=== PATIENT | female | born 1940 | race Caucasian/White ===

== ENCOUNTER 2017-10-21 09:48 | Emergency (ER) | payer MEDICARE, OTHER ==
[~2017-10-21] VITALS: Ht 162.6 cm; Wt 57.1 kg
[~2017-10-21 09:48] MED LIST: ACET325 PO; ALPR.25 PO; AMIO200 PO; ASPI81CH PO; Adult Low Dose81 MG PO; BUME1 PO; CALCA500CH PO; CEFD300 PO; CEPH500 PO; COUGHTAB200 MG PO; DOCU100 PO; FURO20 PO; Garlic1000 MG PO; Hydrocodone-Ap1 EA23 PO; LEVSOD100 PO; LEVSOD125 PO; LEVSOD75 PO; LISI5 PO; Lisinopril2.5 MG; METO25 PO; METO25ER PO; METO50 PO; Micro-K10 MEQ PO; POTCHL10ER PO; ROSU5 PO; SENN187 PO; SIMV10 PO; Spironolactone25 MG PO; VICODIN 5-3001 EACH PO; Zofran4 MG PO
[2017-10-21] MEDS ORDERED: Triamcinolone A15 GM TOP (11:08)
== END 2017-10-21 11:12 | disposition home or self-care (01) ==
LOC: ER 09:48
DX: R21 Rash and other nonspecific skin eruption (principal); I50.9 Heart failure, unspecified; E03.9 Hypothyroidism, unspecified; J44.9 Chronic obstructive pulmonary disease, unspecified; Z79.899 Other long term (current) drug therapy; Z79.82 Long term (current) use of aspirin; Z87.891 Personal history of nicotine dependence
CPT/HCPCS: 99282

== ENCOUNTER 2018-10-18 12:43 | Emergency (ER) | payer MEDICARE, OTHER ==
[~2018-10-18] VITALS: Ht 165.1 cm; Wt 58.1 kg
[~2018-10-18 12:43] MED LIST changes: +Bumetanide1 MG PO; +EUTHYROX88 MCG PO; +Triamcinolone A15 GM TOP
== END 2018-10-18 13:38 | disposition home or self-care (01) ==
LOC: ER 12:43
DX: S60.222A Contusion of left hand, initial encounter (principal); J44.9 Chronic obstructive pulmonary disease, unspecified; I48.91 Unspecified atrial fibrillation; D64.9 Anemia, unspecified; I25.5 Ischemic cardiomyopathy; Z79.82 Long term (current) use of aspirin; Z79.899 Other long term (current) drug therapy; Z87.891 Personal history of nicotine dependence; W22.8XXA Striking against or struck by other objects, initial encounter
CPT/HCPCS: 99283

== ENCOUNTER 2018-11-19 10:26 | Inpatient (IN) | payer MEDICARE, OTHER ==
[~2018-11-19] VITALS: Ht 162.6 cm; Wt 59.8 kg
[2018-11-19 11:26] LABS: BASOPHILS ABSOLUTE AUTO 0.02 K/mm3 (0.00-0.23); BASOPHILS PERCENT AUTO 0 % (0-2); EOSINOPHILS PERCENT AUTO 0 % (0-6); Hematocrit 39.2 % (33.0-51.0); Hemoglobin 12.5 g/dL (11.5-16.0); IMMATURE GRAN ABSOLUTE AUTO 0.06 K/mm3 (0.00-0.10); IMMATURE GRAN PERCENT AUTO 0 % (0-1); LYMPHOCYTES ABSOLUTE AUTO 0.61 K/mm3 (0.84-5.20); LYMPHOCYTES PERCENT AUTO 5 % (21-46); MONOCYTES ABSOLUTE AUTO 0.85 K/mm3 (0.16-1.47); MONOCYTES PERCENT AUTO 6 % (4-13); Mean Corpuscular HGB 32.5 pg (26.0-34.0); Mean Corpuscular HGB Conc 31.9 g/dL (31.5-36.5); Mean Corpuscular Volume 102 fL (80-100); NEUTROPHILS ABSOLUTE AUTO 12.02 K/mm3 (1.96-9.15); NEUTROPHILS PERCENT AUTO 89 % (41-73); Platelet Count 148 K/mm3 (150-400); RDW Coefficient Variation 13.1 % (11.7-14.2); RDW Standard Deviation 48.8 fL (35.1-46.3); Red Blood Cell Count 3.85 M/mm3 (3.80-5.20); White Blood Cell Count 13.56 K/mm3 (4.00-11.30)
[2018-11-19 11:40] LABS: Albumin, Blood 3.9 g/dL (3.4-5.0); Albumin/Globulin Ratio 1.2 (0.8-1.8); Bilirubin, Total 1.8 mg/dL (0.1-1.0); Bun/Creatinine Ratio 32.7 (12.0-20.0); Calcium, Blood 8.8 mg/dL (8.5-10.1); Creatinine, Blood 1.53 mg/dL (0.40-1.00); Globulin, Blood 3.3 g/dL (2.2-4.0); Potassium, Blood 4.3 mmol/L (3.5-5.5); Total Protein, Blood 7.2 g/dL (6.4-8.2); Troponin I 0.115 ng/mL (0.000-0.040)
--- NOTE | 2018-11-19 15:25 | NUR ---
Initial Visit: Pt is very agitated, trying to pull off bipap. Pt's son and are at bedside. Family is holding pt's hands down so that she will keep the mask on. She appears very uncomfortable at the moment. Reviewed heart condition. Nicholas reports that the pt would not likely want intubation. He says, "what are we dealing with?" Reported to him that she is very sick, may not be a good outcome for her. Nurse is at bedside and gives them additional information about likely having other organs effected by the fluid around her heart. Discussed that further decisions will need to be made for the pt's plan and goals. Reviewed with Dr. Randle. Palliative care to remain available if needed for this pt and the family.
[2018-11-19 16:05] LABS: Source, Urine Clean Catch
[2018-11-19 16:15] LABS: Blood, Urine 1+ (Neg); Glucose Qualitative, Urine Neg (Neg); Ketones, Urine 1+ (Neg); Leukocyte Esterase, Urine 1+ (Neg); Nitrite, Urine Neg (Neg); Protein, Urine 3+ (Neg); Specific Gravity, Urine 1.025 (1.003-1.022); Urobilinogen, Urine 2+ (Normal)
[2018-11-19 16:25] LABS: Bilirubin, Urine 1+ (Neg)
[2018-11-19 16:26] LABS: Appearance, Urine Cloudy (Clear); Color, Urine Amber (P-Yellow)
[2018-11-19 16:28] LABS: Squamous Epithelial Cells Mod /hpf (Few)
[2018-11-19 16:29] LABS: Amorphous Heavy (0-Heavy); Bacteria Mod /hpf; Red Blood Cells, Urine 0-2 /hpf (0-2); White Blood Cells, Urine 0-2 /hpf (0-5)
--- NOTE | 2018-11-19 16:45 | NUR ---
PATIENT ARRIVED TO ICU 13 VIA STRETCHER FROM ED AFTER REPORT WAS CALLED TO THIS RN BY KALLI RN, ED, MOVED TO ICU BED VIA SLIDER, PLACED ON PL[employer] SCIENCES PROFESSOR, HR SINUS TACHY IN LOW 100'S, BLOOD PRESSURES VARY FROM LOW 100'S TO 130'S, LUNG SOUNDS ARE DIMINISHED WITH CRACKLES AND SOUND VERY TIGHT, BOWEL TONES ARE VERY HYPOACTIVE, MONROE CATHETER IN PLACE DRAINING MINIMAL AMOUNT OF FLUIDS, SCD'S IN PLACE, LOVENOX GIVEN ORDERED, FAMILY AT BEDSIDE, DR. LUI IN TO SEE PATIENT AND SPOKE WITH FAMILY, ALSO CONSULT FOR CARDIOLOGY WAS CALLED, PATIENT IS A FULL CODE AT THIS TIME, CALL LIGHT IN REACH, WILL CONTINUE TO MONITOR.
--- NOTE | 2018-11-19 17:45 | NUR ---
DR. REEVES IN TO SEE PATIENT, WILL WRITE NEW ORDERS, ALSO LAB IN TO DRAW ORDERED BLOOD CULTURES, CALL LIGHT IN REACH, WILL CONTINUE TO MONITOR.
--- NOTE | 2018-11-19 17:55 | NUR ---
SHIFT SUMMARY NOTE: PATIENT RESTING COMFORTABLY AT THIS TIME ON 3L NC, SATING IN MID 90'S, BLOOD PRESSURES IN LOW 100'S, TO BE STARTED ON HEPARIN DRIP, AWAITING APTT RESULTS, FAMILY AT BEDSIDE, SEE ADMISSION ASSESSMENT FOR DETAILS AND NURSES NOTES, CALL LIGHT IN REACH, WILL CONTINUE TO MONITOR, AND GIVE REPORT TO ONCOMING PHYSICAL EDUCATION DEPARTMENT CHAIR.
--- NOTE | 2018-11-19 18:52 | NUR ---
IMAGING AT BEDSIDE TO DO ORDERED VENOUS DOPPLER, ALSO LAB AT BEDSIDE, ATTEMPTING TO DRAW APTT.
--- NOTE | 2018-11-19 19:15 | NUR ---
[place] of Care: Patient sleeping, easily roused via verbal stimuli, oriented to self, place and family. Denies pain, discomfort, SOB, dyspnea, or SOB. O2-94-98% on 2-3L/NC. Systolic BP 90's-low 100's, MAP- 60's-70's and stable. Tyler cath patent and intact, draining small amount of dark yellow urine. Doppler study of BLE's completed shortly after shift change. Doppler results received were positive for DVT and SVT, both chronic and non-obstructive, Dr. Denny aware of results. Power-glide placed to REAGAN by this RN shortly after shift change. Heparin bolus and gtt started after PTT results received by pharmacist Jayde. Peripheral IV's x2 to rt arm patent and intact. Patient calm and cooperative with staff, appears to be comfortable. Will continue to monitor for pain, comfort, safety.
[2018-11-19 21:12] LABS: Free Thyroxine 0.87 ng/dL (0.70-1.60)
[2018-11-19 21:14] LABS: Thyroid Stimulating Hormone 37.3 uIU/mL (0.360-4.800)
[2018-11-19 21:20] LABS: D-Dimer, Quantitative 4.85 mg/L FEU (0.00-0.52); International Normalized Ratio 1.53; Prothrombin Time Results 15.6 Sec (9.7-11.5)
[2018-11-20 03:46] LABS: BASOPHILS ABSOLUTE AUTO 0.03 K/mm3 (0.00-0.23); BASOPHILS PERCENT AUTO 0 % (0-2); EOSINOPHILS PERCENT AUTO 0 % (0-6); Hematocrit 33.6 % (33.0-51.0); IMMATURE GRAN ABSOLUTE AUTO 0.11 K/mm3 (0.00-0.10); IMMATURE GRAN PERCENT AUTO 1 % (0-1); LYMPHOCYTES ABSOLUTE AUTO 0.56 K/mm3 (0.84-5.20); LYMPHOCYTES PERCENT AUTO 3 % (21-46); MONOCYTES ABSOLUTE AUTO 0.68 K/mm3 (0.16-1.47); MONOCYTES PERCENT AUTO 4 % (4-13); Mean Corpuscular HGB 32.4 pg (26.0-34.0); Mean Corpuscular HGB Conc 32.7 g/dL (31.5-36.5); Mean Platelet Volume 12.6 fL (9.1-12.4); NEUTROPHILS ABSOLUTE AUTO 17.92 K/mm3 (1.96-9.15); NEUTROPHILS PERCENT AUTO 93 % (41-73); Platelet Count 120 K/mm3 (150-400); RDW Coefficient Variation 12.7 % (11.7-14.2); RDW Standard Deviation 46.2 fL (35.1-46.3)
[2018-11-20 03:47] LABS: Mean Corpuscular Volume 99 fL (80-100)
[2018-11-20 04:06] LABS: Albumin, Blood 3.4 g/dL (3.4-5.0); Albumin/Globulin Ratio 1.3 (0.8-1.8); Bilirubin, Total 1.6 mg/dL (0.1-1.0); Bun/Creatinine Ratio 26.1 (12.0-20.0); Calcium, Blood 7.9 mg/dL (8.5-10.1); Creatinine, Blood 2.41 mg/dL (0.40-1.00); Globulin, Blood 2.6 g/dL (2.2-4.0); Magnesium, Blood 2.3 mg/dL (1.6-2.4); Phosphorus, Blood 5.6 mg/dL (2.5-4.9); Potassium, Blood 4.3 mmol/L (3.5-5.5)
[2018-11-20 06:53] LABS: Base Excess Venous -11.4 mmol/L; PCO2 Venous 35.2 mmHg (38-42); PO2 Venous 22 mmHg (38-42); pH Blood Venous 7.26 (7.34-7.37)
--- NOTE | 2018-11-20 08:01 | NUR ---
Shift Summary/ Acute Decline: Patient slept well throughout majority of shift. Continued to deny pain, discomfort, SOB, or dyspnea. VS remained stable with HR low 100's, BP stable with systolic BP 90's-low 100's. Tyler cath remained patent and intact with approx 250ml output. At approx 0600hr, patients HR increased to 160's, appeared to be SVT. At this time, patient asymptomatic, denying pain, discomfort, or dyspnea. O2-94-96%, BP stable. Vagal maneuver's non-effective. 12-lead EKG obtained. Call placed to Dr. Sanchez, received order for IV Lopressor 5mg, x1. Approx 4-5min after Lopressor administered, Patient's HR suddenly decreased to 40's, then slowly back up to 60's and maintained at this rate. Patient also became symptomatic at this time, c/o difficulty breathing and becoming restless. BP decreased to systolic 60's, O2% reading difficult to assess but readings in 70's-80's. 250ml fluid bolus started, non-rebreather mask applied, pacer pads applied, crash cart to room. Dr. Sanchez called to room. BP improved following 250ml fluid bolus, systolic back to 90's-low 100's. Received orders per Dr. Sanchez for STAT troponin, Lactic, chest x-ray, and ABG. Call then placed to Dr. Juarez and Rafael Mendoza, as patient continued to have dyspnea, and began complaining of anterior chest pain, lab results also reported to both physician. Dr. Juarez instructed that he would be in to see patient. Dr. Denny instructed that patient's condition is not likely coronary and more likely r/t PE. Received orders per Dr. Denny to consult Dr. Noriega. Call placed to Dr. Noriega. Informed Dr. Noriega of patient's condition, lab results (including critical labs of Ph-7.26, PO2-22), possible need for intubation, and instructions/information received from Dr. Denny. Patient continued to have dyspnea, with difficult to obtain O2 readings (70's-90's, depending on accuracy of reading) while calls placed to Dr. Denny and Dr. Noriega. Received orders to continue to maintian O2% and start Levophed gtt if BP decreases, per Dr. Noriega. Dr. Dr. Juarez to patient's room while call placed to Dr. Noriega. Patient's BP declined and became unobtainable per automatic cuff while Dr. Juarez in room. Dr. Juarez instructed to start fluid bolus, start Levophed gtt throughout peripheral IV, and obtain central line. Courtney RN then placed call to Dr. Noriega, informed him of need for central line, and change/decline in patient's BP. Courtney ALONSO also placed call to ER, but ER physician unable to come to unit to place central line. Levophed gtt infusing at 20mcg/min, and NS fluid bolus infusing at this time, approx 0730hr. Dr. Noriega to room approx 0745hr. Day shift RN's and Dr. Noriega then began set-up for intubation and central line placement.
[2018-11-20 08:47] LABS: PCO2 Arterial 20.6 mmHg (35-45); PO2 Arterial 484 mmHg (80-100)
[2018-11-20 08:48] LABS: pH Blood Arterial 7.18 (7.35-7.45)
--- NOTE | 2018-11-20 09:04 | NUR ---
GENERAL ICU NOTE FOR CRITICAL PT... AT APPROX 0700 INTERED THE ROOM AND PT WAS CALLING OUT FOR PAIN IN HER BACK AND THAT SHE COULD NOT BREATH. ATTEMPTS WERE MADE TO OBTAIN BP NIPB, MANUAL AND DOPPLER UNSUCCESFULLLY. DR CHASE WAS IN ROOM AND LEVOPHED GTT WAS ORDERED AND STARTED PERIPHERALLY WITH SITE CHECKED. PT LUNGS ARE DIMINISCHED IN L BASE BUT MOVING AIR IN ALL OTHER SALGADO. PT HAS GENERAL BODY CYANOSIS, COOL AND CLAMY. PT PIV'S ARE ALL IN R ARM AND STABLE. DR ZAVALA ARRIVED AND L SUBCLAV. LINE PLACED FOLLOWED BY L FEMERAL A-LINE WITH NOTED PRESSURES. CVP REPORTED AT 22-[address] ZAVALA. ABG'S OBTAINEDA AND REPORTED. SPB NOTED AT 100+ PER VAHID AND REPORTED. CXR TO FOLLOW. ECHOCARD. AND ABD ULTRASOUND ORDERED AND BOTH BEING COMPLETED AT THIS TIME. PT IS SINUS BRANDY AND POOR PERFUSION SATS REMAIN LOW NOTED. IV GTTS NOTED.
--- NOTE | 2018-11-20 09:41 | NUR ---
ECHOCARDIOGRAM COMPLETED
--- NOTE | 2018-11-20 11:57 | NUR ---
VS HAVE IMPROVED NOTED AND LEVOPHED GTT DOWN TO 16MCG. IVF NOTED. NO U.O. DISTAL EXT REMAIN COLD AND CYANOTIC. FENTANYL IVP GIVEN NOTED AND PT IS CALM. L SUBCLAV CENTERAL SITE D/C AND DSGED WITH MINOR PRESSURE HELD TO STOP BLEEDING. NEW L GROIN QUAD CENTRAL LINE PLACE PER DR ZAVALA WITH DSG COVERING A-LINE AND CENTRAL LINE AND MARKED. PT IS LIGHTLY RESTRAINED AND ORDER PLACED. SR 60-64 RANGE. NO ET SECREATIONS AT THIS TIME.
--- NOTE | 2018-11-20 15:15 | NUR ---
Met with Alessandro at Shereen's bedside. She is currently on a ventilator with pressor support. Her EF is very low and kidney function is poor. Talked with family about her condition. They agreed to DNR status yesterday and they continue to support this today. Plan per and son at this time is to "wait and see." They are aware that she is not doing well at this time. Emotional support given. Nicholas brought Shereen's rosary and placed it in her hand. They spoke with Table Makerjazmine Chery earlier and would like Father Zaire to visit when he is able. PC will continue to follow. If her condition continues to decline will have conversations with family members re: transitioning to comfort care.
--- NOTE | 2018-11-20 15:44 | NUR ---
[facility]ual [facility] intial visit: I met with Mrs. Mccarthy family in ICU waiting area. they appear to understand her poor prognosis. They tell me she is a life-long Quaker and they would like "last rites before she dies." Advised that Father Zaire has the day off and offered to call him in if they so desired. More family is arriving by tomorrow, and they would like to wait until "everyone is here." Advised I would remain available.
--- NOTE | 2018-11-20 16:35 | NUR ---
HEPARIN GTT WAS TURNED OFF EARLIER AND PT HR AND VS NOTED. PT IS NOTED TO HAVE SOME SLOW VT AND DR ZAVALA VIEWED THE RYTHUM STRIP. PT HR SPONTANIOUS RETURN TO 55-65 RANGE W/O INTERVENTION. FAMILY HAS BEEN IN AND OUT OF ROOM AND MADE AWARE OF PT STATUS.
--- NOTE | 2018-11-20 18:40 | NUR ---
HEP GTT RESTARTED AT 12UNITS/ 14.2 ML. IVF NOTED. I/O NOTED. VSS ON CURRENT PRESSOR SETTINGS SEE FLOWSHEET. PT HAS BEEN MANNAGED ON VERSED AND FENTANYL IVP'S. UO REPORTED TO DR ZAVALA. VENT SETTINGS NOTED.
--- NOTE | 2018-11-20 21:32 | NUR ---
ASSUMED PT CARE AT 191 PT INTUBATED WITH VENT SETTINGS: AC 16, TV 350, PEEP 5, FIO2 50%; RR 22, OXYGEN SATURATIONS 95%. PT BEING MEDICATED WITH FENTANYL AND VERSED PUSHES NEEDED PER ORDERS; VERBAL ORDERS FROM DR. ZAVALA TO START VERSED GTT AND TITRATE TO EFFECT PT RESPONDS TO NOXIOUS STIMULI AND BECOMES VERY ANXIOUS/AGITATED VERY QUICKLY. LUNG SOUNDS ARE CLEAR TO BILATERAL UPPER LOBES AND DIMINISHED TO BILATERAL LOWER LOBES. PT NOTED TO BE HAVING FREQUENT BIGEMINY PVC'S WITH A HR 87. LEVOPHED GTT TITRATED DOWN TO 8MCG/MIN AT CHANGE OF SHIFT, VASOPRESSIN CONTINUES AT 0.04UNITS/MIN, AND DOBUTAMINE AT 5MCG/KG/MIN. ARTERIAL LINE TO LEFT GROIN WITH SBP'S 110-130'S. CENTRAL LINE ALSO TO LEFT GROIN WITH SODIUM BICARB INFUSING AT 75MLS/HR, HEPARIN AT 12 UNITS/KG/HR PER PHARMACY CONSULT. CVP PRESSURE OF 20 WITH MINIMAL URINE OUTPUT NOTED; DR. ZAVALA AWARE. POWERGLIDE REMAINS TO RIGHT UPPER EXTREMITY; PATENT AND FLUSHED. SON AT BEDSIDE AT THIS TIME. WILL CONTINUE TO MONITOR FOR ANY SIGNIFICANT CHANGES AND REPORT TO PHYSICIAN INDICATED.
[2018-11-21 04:33] LABS: Albumin, Blood 2.7 g/dL (3.4-5.0); Albumin/Globulin Ratio 1.2 (0.8-1.8); Bilirubin, Total 1.2 mg/dL (0.1-1.0); Bun/Creatinine Ratio 28.5 (12.0-20.0); Calcium, Blood 6.6 mg/dL (8.5-10.1); Creatinine, Blood 2.7 mg/dL (0.40-1.00); Globulin, Blood 2.2 g/dL (2.2-4.0); Magnesium, Blood 1.8 mg/dL (1.6-2.4); Phosphorus, Blood 4.9 mg/dL (2.5-4.9); Potassium, Blood 3.5 mmol/L (3.5-5.5); Total Protein, Blood 4.9 g/dL (6.4-8.2)
[2018-11-21 05:33] LABS: BASOPHILS ABSOLUTE AUTO 0.01 K/mm3 (0.00-0.23); BASOPHILS PERCENT AUTO 0 % (0-2); EOSINOPHILS PERCENT AUTO 0 % (0-6); Hematocrit 28.9 % (33.0-51.0); IMMATURE GRAN PERCENT AUTO 1 % (0-1); LYMPHOCYTES ABSOLUTE AUTO 0.39 K/mm3 (0.84-5.20); LYMPHOCYTES PERCENT AUTO 3 % (21-46); MONOCYTES ABSOLUTE AUTO 0.52 K/mm3 (0.16-1.47); MONOCYTES PERCENT AUTO 4 % (4-13); Mean Corpuscular HGB 32.4 pg (26.0-34.0); Mean Corpuscular HGB Conc 34.6 g/dL (31.5-36.5); NEUTROPHILS ABSOLUTE AUTO 12.15 K/mm3 (1.96-9.15); NEUTROPHILS PERCENT AUTO 92 % (41-73); NRBC ABSOLUTE 0.04 K/mm3 (0.00-0.02); NRBC Auto 0.3 /100 WBC (0.0-0.2); Platelet Count 98 K/mm3 (150-400); RDW Coefficient Variation 12.5 % (11.7-14.2); RDW Standard Deviation 42.3 fL (35.1-46.3); Red Blood Cell Count 3.09 M/mm3 (3.80-5.20); White Blood Cell Count 13.17 K/mm3 (4.00-11.30)
--- NOTE | 2018-11-21 05:33 | NUR ---
END OF SHIFT SUMMARY PT REMAINS INTUBATED. VENT SETTINGS AC 16, TV 350, PEEP 5, FIO2 30%. VERSED GTT AT 4MG/HR; PT APPEARS COMFORTABLE AT THIS DOSE. VERY AGITATED TO NOXIOUS STIMULI WITH VERSED GTT AT 2MG/HR. LUNG SOUNDS REMAIN CLEAR TO BILATERAL UPPER LOBES AND DIMINISHED TO BILATERAL LOWER LOBES. SCANT AMOUNT OF SPUTUM, THICK AND ESCALANTE IN COLOR. PT HAS BEEN IN NSR WITH FREQUENT BIGEMINY PVC'S; HR 80'S. ABLE TO TITRATE LEVOPHED GTT OFF; VASOPRESSIN AND DOPUTAMINE REMAIN ON. CENTRAL LINE AND ARTERIAL LINE REMAIN TO LEFT FEMORAL SITE WITH DRESSING CDI. CVP MEASUREMENT OF 20 AT BEGINNING OF SHIFT AND 15 AT THE END. SODIUM BICARD CONTINUES TO INFUSE AT 75MLS/HR, AND HEPARIN AT 12 UNITS/KG/HR. URINE OUTPUT ADEQUATE THIS SHIFT; ACCOUNTING FOR 900CC TOTAL. PT REMAINS COLD TO THE TOUCH WITH POOR CAPILLARY REFILL; PALE SKIN COLOR. REPOSITIONED FOR COMFORT. FAMILY AT BEDSIDE INTERMITTENTLY T/O THE NIGHT. WILL CONTINUE TO MONITOR UNTIL REPORT IS HANDED OFF TO ONCOMING RN.
[2018-11-21 05:36] LABS: Mean Corpuscular Volume 94 fL (80-100)
--- NOTE | 2018-11-21 06:43 | NUR ---
DR. REEVES AT BEDSIDE DISCUSSING WITH FAMILY PT'S POOR PROGNOSIS. FAMILY WANTS TO WAIT TO DISCUSS WITH OTHER FAMILY MEMBERS END OF LIFE CARES PRIOR TO MAKING ANY FINAL DECISIONS.
--- NOTE | 2018-11-21 09:48 | NUR ---
PT SATS HAVE IN JUST LAST FEW MINUTES BEGAN TO SAG AND FIO2 IS CURRENTLY UP TO 45% AND WILL FOLLOW. FAMILY IS IN AND WISHING TO TALK TO DR FONSECA RE PT STATUS. IV GTTS ARE UNCHANGED CURRENTLY FROM 0800.
--- NOTE | 2018-11-21 10:44 | NUR ---
FAMILY IN ROOM AND WISHING TO TALK WITH DR REGARDING PT CONDITION AND STATUS. SATS AND BP IS ADIQUATE AT THIS TIME.
--- NOTE | 2018-11-21 17:02 | NUR ---
1515 PT WAS CHANGED TO COMFORT CARE AND PREPARED FOR EXTUBATION. 1530 PT WAS EXTUBATED AND MS FOR AIR HUNGER WAS GIVEN. FAMILY WAS CALLED TO BEDSIDE. PT RR ARE EVEN AND VERY MOIST SOUNDING. THERE IS NO EVIDENCE OF AIR HUNGER OR STRUGGLING NOTED. 1630-KATY ALL FAMILY OUT OF ROOM FOR NOW AND WILL CALL AT T.O.D. RR 22-26 AND CONT MOIST SOUNDING AND PT REMAINS CALM W/O AGITATION OR DISTRESS.
--- NOTE | 2018-11-21 18:04 | NUR ---
[facility] Spiritual Care note: Mrs. Mccrathy appears comfortable and is non-responsive. Family is deeply appreciative of spiritual support from Father Zaire. I answered family questions about next steps after . they have selected [facility] for arrangements. Family appears loving and devoted. No concerns presented. I will remain available.
--- NOTE | 2018-11-21 18:38 | NUR ---
PT RR ESSENTIALLY UNCHANGED, HR 105-110, VERSED GTT REMAINS AT 7MCG.
--- NOTE | 2018-11-21 19:31 | NUR ---
ASSUME CARE: REPORT RECIEVED FROM CAS OFF GOING RN. COMFORT CARE STATUS. LUNGS COARSE RHONCHI SX LG AMT THICK ESCALANTE SPUTUM ORALLY. REPOSITIONED TO L SIDE. MONROE PATENT DRAINING CLEAR FENG URINE. FAMILY IN FOR UPDATE. EMOTIONAL SUPPORT AND COMFORT OFFERED. PT REST QUIETLY . NO RESPONSE TO VERBAL OR TACTILE STIMULI. CONTINUE TO MONITOR AND REPORT CHANGE IN PATIENT CONDITIONN
--- NOTE | 2018-11-21 22:29 | NUR ---
REMOVED CENTRAL AND ART LINE PRESSURE HELD DRESSING PLACED DRY INTACT SX LG AMT ESCALANTE THICK SECREATIONS CONTINUE TO MONITOR AND REPORT CHANGE IN PATIENT CONDITION
--- NOTE | 2018-11-22 02:25 | NUR ---
TRANSFER SUMMARY: REPORT GIVEN SOPHIE ACCEPTING RN. REMAINS COMFORT CARE. UNRESPONSIVE TO VERBAL OR TACTILE STIMULI. SX LG AMT ESCALANTE CREMEY SECRETIONS ORALLY. NO GAG NOTED. MEDICATED WITH FENTANYL ONCE. TRANSFER TO ICU 3 . CONTINUE TO MONITOR AND REPORT CHANGE IN PATIENT CONDITION.
--- NOTE | 2018-11-22 06:30 | NUR ---
PT SON DIANE NOTIFIED THAT PT MOVED TO ICU-3. PT CONT UNRESPONSIVE. APPEARS PEACEFUL W SHALLOW RESPIRATIONS. CONT TO PROVIDE MEDS FOR COMFORT. REPORT TO KATELYN.
--- NOTE | 2018-11-22 07:30 | NUR ---
ASSUMED CARE OF PATIENT; SEE ASSESSMENT CHARTING FOR DETAILS. PATIENT REMAINS COMFORT CARE STATUS AND IS MEDICAL STATUS; NO ROOMS AVAILABLE AT THIS TIME. SLEEPING WITH EYES CLOSED; NO RESPONSE TO VERBAL OR TACTILE STIMULI. MONITOR WITH ST, RATE LOW 100'S. APPEARS COMFORTABLE AND RR RATE EVEN AND UNLABORED. LUNGS CLEAR BUT DIMINISHED T/O. MONROE CATH. TO GRAVITY DRAINAGE; MOD. AMOUNTS OF MED. YELLOW URINE. NPO STATUS D/T DECREASED LOC AND POTENTIAL FOR ASPIRATION. BROTHER ARRIVED; SUPPORTIVE OF PATIENT.
--- NOTE | 2018-11-22 10:00 | NUR ---
DR. FELICITAS PARR IN TO SEE PATIENT; SPOKE TO PATIENTS' BROTHER FOR AWHILE. NO NEW ORDERS; PATIENT REPOSITIONED AND APPEARS COMFORTABLE; CONT. WITHOUT SPONT. MOVEMENT/RESPONSE.
--- NOTE | 2018-11-22 12:00 | NUR ---
PATIENT'S HR ELEVATED TO 160'S; WILL GIVE ROXANOL SUBLINQUAL FOR COMFORT MANAGEMENT.
--- NOTE | 2018-11-22 15:11 | NUR ---
MORPHINE SULFATE 2MG IV FOR INCREASING HR (180'S) AND FURROWED BROW. TO TRANSFER TO [facility], ROOM 341; AWAITIG ROOM TO BE CLEANED.
--- NOTE | 2018-11-22 15:50 | NUR ---
REPORT TO FEDERICO HARRINGTON RN; SHE WILL TAKE OVER CARE OF PATIENT WHEN HE IS TRANSFERRED TO ROOM 341.
--- NOTE | 2018-11-22 15:51 | NUR ---
Pt visit this afternoon. Pt resting in bed with her eyes closed and is non responsive. Pt appears comfortable with no S/S of distress at this time. Spoke with bedside nurse and she reports no concerns at this time. Plan if for Pt transfer to medical floor. Palliative Care will remain available.
--- NOTE | 2018-11-22 16:40 | NUR ---
TRANSFERRED TO MEDICAL FLOOR, ROOM 341, VIA BED; BELONGINGS, CHART AND MEDS. WITH PATIENT; REMAINS COMFORT CARE STATUS.
--- NOTE | 2018-11-22 16:57 | NUR ---
RECEIVED TO ROOM 341 FROM ICU VIA BED. SHE DID NOT AROUSE WHEN WE TRANSFERRED HER TO THE NEW BED. SHE IS UNCONSCIOUS. RATTLING COUGH. RESPIRATIONS 32/MIN AND REGULAR. HEART RACING FELT WITH MY HAND ON HER CHEST. NO FAMILY PRESENT AT THIS TIME. MONROE BAG WITH SMALL AMT OF YELLOW URINE. PG DRESSING INTACT ON REAGAN. WILL MEDICATE.
--- NOTE | 2018-11-22 17:30 | NUR ---
Pal Spiritual Care note: Mrs. Mccarthy was alone in room at time of visit. HR high, respirations even but rattled. She is not responsive to voice or touch, and appears to be in no distress. Nursing doing a great job as Shereen appears well cared-for. Prayer provided at bedside. I will remain available.
--- NOTE | 2018-11-22 18:33 | NUR ---
HOB ELEVATED 40 DEGREES TO LESSEN THE UPPER AIRWAY RATTLE. OCCASIONAL WET SHALLOW COUGH. SINCE ARRIVAL TO RM 341, I HAVE GIVEN ROXANOL X1 AND ATIVAN 0.5 MG FOR THE TACHYPNEA. RESPIRATIONS ARE 28 TO 32 PER MINUTE. WILL CONTINUE TO TRY TO MAKE HER MORE COMFORTABLE. NO FAMILY PRESENT AT THIS TIME.
--- NOTE | 2018-11-22 20:49 | NUR ---
2029: PATIENT REMAINS TACHYPNEIC WITH COARSE RATTLE LUNG SOUNDS. GAVE 1MG IV ATIVAN AND ATROPINE DROPS PER EMAR.. TURNED PATIENT TO RIGHT AND HOB UP TO EASE BREATHING. PATIENT HAS DUSKY YELLOW PALLOR AND DISTANT GAZE. PATIENT HR SLOWED AND BREATHS SLOWED WELL. CALLED CHARGE TO ROOM. 2044: PATIENT TIME OF .
== END 2018-11-22 20:45 | DRG 208 ==
LOC: ER 10:26 → ICUW 15:42 → ICUE 11-22 03:36 → MEDS 11-22 16:40
PROVIDERS: Emergency Medicine; Internal Medicine Critical Care Medicine; ADMIT Internal Medicine Endocrinology, Diabetes & Metabolism
PROC: 5A1945Z Respiratory Ventilation, 24-96 Consecutive Hours (ICD-10-PCS; 2018-11-19)
PROC: 0BH17EZ Insertion of Endotracheal Airway into Trachea, Via Natural or Artificial Opening (ICD-10-PCS; principal; 2018-11-20)
PROC: 3E033XZ Introduction of Vasopressor into Peripheral Vein, Percutaneous Approach (ICD-10-PCS; 2018-11-20)
PROC: 02HV33Z Insertion of Infusion Device into Superior Vena Cava, Percutaneous Approach (ICD-10-PCS; 2018-11-20)
PROC: 04HL33Z Insertion of Infusion Device into Left Femoral Artery, Percutaneous Approach (ICD-10-PCS; 2018-11-20)
DX: J96.01 Acute respiratory failure with hypoxia (principal); I50.23 Acute on chronic systolic (congestive) heart failure; K72.00 Acute and subacute hepatic failure without coma; I13.0 Hypertensive heart and chronic kidney disease with heart failure and stage 1 through stage 4 chronic kidney disease, or unspecified chronic kidney disease; I47.1 Supraventricular tachycardia; N17.9 Acute kidney failure, unspecified; I25.5 Ischemic cardiomyopathy; Z51.5 Encounter for palliative care; N18.3 Chronic kidney disease, stage 3 (moderate); E03.9 Hypothyroidism, unspecified; R57.0 Cardiogenic shock; I95.9 Hypotension, unspecified; I08.1 Rheumatic disorders of both mitral and tricuspid valves
CPT/HCPCS: 31500; 31720; 36415; 36556; 36620; 51702; 71045; 71046; 76775; 80053; 81001; 82803; 82947; 83605; 83735; 83880; 84100; 84439; 84443; 84484; 85025; 85379; 85610; 85730; 87040; 87086; 93005; 93010; 93306; 93970; 94002; 94003; 94660; 96374-59; 96375-59; 99285-25; C1751; C9113; J0330; J1250; J1644; J1650; J1720; J2060; J2250; J2270; J2704; J3010; J7030; J7060; J7070